=== PATIENT | male | born 1985 | race Caucasian/White ===

== ENCOUNTER 2022-10-08 15:26 | Emergency (ER) | payer OTHER ==
[~2022-10-08] VITALS: Ht 167.6 cm; Wt 99.8 kg
[2022-10-08] MEDS ORDERED: CRUTCHES XX (18:13)
[2022-10-08] MEDS ORDERED: ONDANSETRON ODT4 MG PO (18:13)
[2022-10-08] MEDS ORDERED: HYDROCODON-ACE1 EA10 PO (18:13)
[2022-10-08] MEDS ORDERED: CEPHALEXIN500 M1 PO (18:13)
--- NOTE | 2022-10-09 15:59 | EKG ---
[facility] [address] [facility] [place] [address] Signed Sinus rhythm with premature atrial complexes Otherwise normal ECG No previous ECGs available Confirmed by HILLARY MORALES MD ([id number] on 10/09/2022 3:59:34 PM Electronically Signed By: HILLARY MORALES MD 10/09/22 1559 PATIENT NAME: YUE BROWN Electrocardiogram DATE OF : 83 PHYSICIAN: HILLARY MORALES MD REPORT #: [id number] REPORT IS CONFIDENTIAL AND NOT TO BE RELEASED WITHOUT AUTHORIZATION
== END 2022-10-08 21:02 | disposition home or self-care (01) ==
LOC: ED 15:26 → EDBD 15:26 → ED 21:02
DX: S71.132A Puncture wound without foreign body, left thigh, initial encounter (principal); W34.00XA Accidental discharge from unspecified firearms or gun, initial encounter; Z20.822 Contact with and (suspected) exposure to COVID-19
CPT/HCPCS: 36415; 73552; 73706; 80053; 83605; 85025; 86850; 86900; 86901; 87502; 90715; 93005; 93010; 96375; 96376; 99285-25; G0480; J0690; J1885; J2270; J2405; J2550; J7030; J7121; Q9967; U0003